=== PATIENT | male | born 1950 | race Hispanic/Latino ===

== ENCOUNTER 2023-03-01 03:29 | Emergency (ER) | payer OTHER ==
[~2023-03-01] VITALS: Ht 182.9 cm; Wt 143.8 kg
[~2023-03-01 03:29] MED LIST: ALBU90AE2 IH; ALLO300T2 PO; ASPI-1005 PO; ASPI-556 PO; ATOR20TA65 PO; FURO40TA5 PO; HYDR-4457 PO; LORA0.5T83 PO; LOSA100T59 PO; SYMB8060 IH; spiriva IH
[2023-03-01 03:51] LABS: APPEARANCE,URINE CLEAR (CLEAR); BILIRUBIN,URINE NEGATIVE (NEGATIVE); COLOR,URINE LIGHT-YELLOW (YELLOW); GLUCOSE, URINE (UA) >=1000 mg/dL (NEGATIVE); KETONES,URINE NEGATIVE (NEGATIVE); LEUKOCYTE ESTERASE ,URINE NEGATIVE Leu/uL (NEGATIVE); NITRATE,URINE NEGATIVE (NEGATIVE); OCCULT BLOOD,URINE SMALL (NEGATIVE); PH,URINE 5.5 (5.0-8.0); PROTEIN,URINE 20 mg/dL (NEGATIVE); UROBILINOGEN,URINE 0.2 mg/dL (0.2-1.0)
[2023-03-01 03:52] LABS: ADD UA MICROSCOPIC YES
[2023-03-01 03:57] LABS: MUCUS,URINE RARE LPF (None Seen); SQUAMOUS EPITHELIAL CELL,UR RARE /HPF (0-2); WBC,URINE 0-1 /HPF (0-1)
[2023-03-01 03:58] LABS: BASOPHILS # (AUTO) 0.04 K/uL (0.00-0.20); BASOPHILS % (AUTO) 0.4 % (0.0-5.0); EOSINOPHILS # (AUTO) 0.04 K/uL (0.00-0.70); EOSINOPHILS % (AUTO) 0.4 % (0.0-8.0); HEMATOCRIT 41.3 % (42-54); IMMATURE GRANULOCYTE ABSOLUTE 0.09 K/uL (0-1); LYMPHOCYTES # (AUTO) 0.6 K/uL (1.0-4.8); LYMPHOCYTES % (AUTO) 6.1 % (21.0-51.0); MEAN CORPUSCULAR HEMOGLOBIN 32.9 pg (27.0-33.0); MEAN CORPUSCULAR HGB CONC 34.1 g/dL (32.0-36.0); MEAN CORPUSCULAR VOLUME 96.3 fL (79-99); MONOCYTES # (AUTO) 0.6 K/uL (0.1-1.0); MONOCYTES % (AUTO) 6.1 % (3.0-13.0); NEUTROPHILS # (AUTO) 9.1 K/uL (1.8-7.7); NEUTROPHILS % (AUTO) 86.1 % (40.0-77.0); PLATELET COUNT (AUTO) 211 K/uL (130-400); RED BLOOD CELL COUNT(AUTO) 4.29 MIL/uL (4.50-6.20); RED CELL DISTRIBUTION WIDTH 13.2 % (11.0-15.5); WHITE BLOOD COUNT (AUTO) 10.5 K/uL (4.8-10.8)
[2023-03-01 04:06] LABS: CREATININE 1.1 mg/dL (0.5-1.5); POTASSIUM 4.4 mmol/L (3.5-5.1)
[2023-03-01 04:13] LABS: ALBUMIN 3.3 g/dL (3.5-5.0); BILIRUBIN,TOTAL 0.9 mg/dL (0.2-1.0); TOTAL PROTEIN, SERUM 7.5 g/dL (6.0-8.3)
[2023-03-01 04:14] LABS: WBC MORPHOLOGY CONSISTENT W/DIFF
[2023-03-01] MEDS ORDERED: ONDANSETRON 4MG INJ ONE (04:43)
[2023-03-01] MEDS ORDERED: CYCLOBENZAPRINE HCL 10 MG TABLET ONE (04:44)
[2023-03-01] MEDS ORDERED: MORPHINE 2 MG SYG ONE (04:44)
[2023-03-01] MEDS ORDERED: CYCLOBENZAPRINE HCL 10 MG TABLET PO ONE (05:00)
[2023-03-01] MEDS ORDERED: MORPHINE 2 MG SYG IVP ONE (05:00)
[2023-03-01] MEDS ORDERED: ONDANSETRON 4MG INJ IVP ONE (05:00)
[2023-03-01] MEDS ORDERED: IBUP-1493 PO (06:14)
[2023-03-01] MEDS ORDERED: GABA300C PO (06:14)
[2023-03-01] MEDS ORDERED: CYCL-309 PO (06:14)
[2023-03-01 06:16] VITALS: BP 132/65; PULSE 78; RESP 16; O2SAT 98
== END 2023-03-01 06:29 | disposition home or self-care (01) ==
LOC: EDH 03:29
DX: M51.16 Intervertebral disc disorders with radiculopathy, lumbar region (principal); M51.36 Other intervertebral disc degeneration, lumbar region; K40.90 Unilateral inguinal hernia, without obstruction or gangrene, not specified as recurrent; R91.1 Solitary pulmonary nodule; I10 Essential (primary) hypertension; E11.9 Type 2 diabetes mellitus without complications; E78.00 Pure hypercholesterolemia, unspecified; Z79.82 Long term (current) use of aspirin; Z79.899 Other long term (current) drug therapy; Z98.890 Other specified postprocedural states
CPT/HCPCS: 99285; 74176; 96374; 96375; 80053; 85025; 81001; 36415; J2270; J2405

== ENCOUNTER 2024-05-09 08:00 | Observation (INO) | payer OTHER ==
[2024-05-03 10:58] LABS: BASOPHILS # (AUTO) 0.04 K/uL (0.00-0.20); BASOPHILS % (AUTO) 0.5 % (0.0-5.0); EOSINOPHILS # (AUTO) 0.12 K/uL (0.00-0.70); EOSINOPHILS % (AUTO) 1.6 % (0.0-8.0); HEMATOCRIT 42.4 % (42-54); IMMATURE GRANULOCYTE ABSOLUTE 0.07 K/uL (0-1); LYMPHOCYTES # (AUTO) 0.9 K/uL (1.0-4.8); MEAN CORPUSCULAR HEMOGLOBIN 33.6 pg (27.0-33.0); MEAN CORPUSCULAR VOLUME 99.1 fL (79-99); MONOCYTES # (AUTO) 0.7 K/uL (0.1-1.0); MONOCYTES % (AUTO) 8.6 % (3.0-13.0); NEUTROPHILS # (AUTO) 5.8 K/uL (1.8-7.7); NEUTROPHILS % (AUTO) 76.4 % (40.0-77.0); PLATELET COUNT (AUTO) 172 K/uL (130-400); RED BLOOD CELL COUNT(AUTO) 4.28 MIL/uL (4.50-6.20); RED CELL DISTRIBUTION WIDTH 13.2 % (11.0-15.5); WHITE BLOOD COUNT (AUTO) 7.6 K/uL (4.8-10.8)
[2024-05-03 11:04] VITALS: BP 171/77; PULSE 65; RESP 18; TEMP 98.1
[2024-05-03 11:09] LABS: APPEARANCE,URINE CLEAR (CLEAR); BILIRUBIN,URINE NEGATIVE (NEGATIVE); COLOR,URINE COLORLESS (YELLOW); GLUCOSE, URINE (UA) NEGATIVE (NEGATIVE); KETONES,URINE NEGATIVE (NEGATIVE); LEUKOCYTE ESTERASE ,URINE NEGATIVE Leu/uL (NEGATIVE); NITRATE,URINE NEGATIVE (NEGATIVE); OCCULT BLOOD,URINE NEGATIVE (NEGATIVE); PROTEIN,URINE NEGATIVE (NEGATIVE); UROBILINOGEN,URINE 0.2 mg/dL (0.2-1.0)
[2024-05-03 11:10] LABS: ADD UA MICROSCOPIC NO
--- NOTE | 2024-05-03 11:13 | EKG ---
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
[~2024-05-09] VITALS: Ht 182.9 cm; Wt 143.3 kg
[2024-05-09] VITALS (23 sets, daily range): BP systolic 92–155; BP diastolic 43–76; PULSE 48–62; RESP 15–20; TEMP 97.4–98.5; O2SAT 93
[~2024-05-09 08:00] MED LIST changes: -ALBU90AE2 IH; +ALBU90AE3 IH; -ASPI-1005 PO; +CETI10TA57 PO; +EMPA25TA PO; +FLUT16H NASAL; -HYDR-4457 PO; +MULT-1367 PO; +NAPR-1506 PO; -SYMB8060 IH; +TIOT4MIS8 IH; -spiriva IH
[2024-05-09] MEDS ORDERED: ondanSETRON 4MG INJ ONE (08:42)
[2024-05-09] MEDS ORDERED: phenylEPHRINE HCL 10 MG/ML 1ML VIAL IV ONE (08:42)
[2024-05-09] MEDS ORDERED: proPOFol 10 MG/ML 20ML VIAL IV ONE ×2 (08:42→11:35)
[2024-05-09] MEDS ORDERED: rocuRONium bROMide 10MG/1ML 5ML VL ONE ×2 (08:43→09:42)
[2024-05-09] MEDS ORDERED: FENTanyl CITRate PF 50 MCG/1 ML 2ML VIAL ONE ×2 (08:43→13:27)
[2024-05-09] MEDS ORDERED: MIDAZOLAM HCL 1 MG/ML 2ML VIAL ONE (08:43)
[2024-05-09] MEDS ORDERED: dexaMETHasone SOD PHOSPHATE 10MG/ML 1ML VIAL ONE (08:48)
[2024-05-09] MEDS ORDERED: ROPivacaine 0.5% 5MG/ML 30ML ONE (08:48)
[2024-05-09] MEDS: CLINDAMYCIN IVPB 900MG/50ML 50 ML IV ONE (09:38)
[2024-05-09] MEDS: 0.9%NACL 1000ML 1,000 ML IV ONE (09:38)
[2024-05-09] MEDS: ceFAZolin SODIUM 1 GM VIAL ONE (10:00)
[2024-05-09] MEDS: TRANEXAMIC ACID 1000MG/10ML ONE ×2 (10:10→14:06)
[2024-05-09] MEDS ORDERED: ceFAZolin SODIUM 1 GM VIAL ONE (10:32)
[2024-05-09] MEDS ORDERED: GLYCOPYRROLATE 0.2 MG/ML 5 ML VIAL ONE (13:27)
[2024-05-09] MEDS ORDERED: NEOSTIGMINE METHYLSULFATE 1MG/ML IV ONE (13:27)
[2024-05-09] MEDS ORDERED: CALCIUM CARB 500MG PO PRN (13:30)
[2024-05-09] MEDS ORDERED: PoTASSium chloRIDE 20MEQ/100ML 100 ML IV PRN (13:30)
[2024-05-09] MEDS ORDERED: PoTASSium chloRIDE 20MEQ ER 20 MEQ ERTAB PO PRN (13:30)
[2024-05-09] MEDS ORDERED: PoTASSium chl 10% ELIXIR 20MEQ 20 MEQ/15 ML UDCUP PO PRN (13:30)
[2024-05-09] MEDS ORDERED: ondanSETRON 4MG INJ IVP PRN (13:30)
[2024-05-09] MEDS ORDERED: HYDROcodone/APAP 5/325 1 TAB TABLET PO PRN (13:30)
[2024-05-09] MEDS ORDERED: DiphenhydrAMINE HCL 50 MG/ML VIAL IVP PRN (13:30)
[2024-05-09] MEDS ORDERED: FE FUMARATE/FA/MV, MIN COMB#15 1 TAB PO PRN (13:30)
[2024-05-09] MEDS ORDERED: ketOROlac 15MG/ML VIAL (15MG/ML) IV PRN (13:30)
--- NOTE | 2024-05-09 14:41 | HMCIMG ---
SHOULDER COMP 2+VWS LT REASON: ORIF LEFT SHOULDER, TSA, VS REVERSE TECHNIQUE: 10 surgical spot views were obtained. These document to left shoulder joint prosthesis placement. Fluoroscopy time was 27 seconds. IMPRESSION: 1. Documentation of left shoulder joint prosthesis placement.
--- NOTE | 2024-05-09 15:44 | OP ---
Operative Note: DATE OF PROCEDURE: 05/09/24 SURGEON: REVA OLIVER MD COLLAR FOLDER OPERATOR: [ANA TREVIZO CFA] ANESTHESIA: [GENERAL ANESTHESIA PLUS REGIONAL BLOCK] ANESTHESIOLOGIST/ALLERGY PHYSICIAN: [CLARITZA PARTIDA CRNA] PREOPERATIVE DIAGNOSIS: [LEFT SHOULDER OSTEOARTHRITIS] POSTOPERATIVE DIAGNOSIS: [LEFT SHOULDER OSTEOARTHRITIS] IMPLANTS: [BIOMET SHOULDER. HUMERAL STEM SIZE 16. HUMERAL HEAD SIZE 50 X 21 MM. GLENOID SIZE 5, FOUR PEG WITH TRABECULAR METAL POST] PROCEDURE: [LEFT TOTAL SHOULDER ARTHROPLASTY] ESTIMATED BLOOD LOSS: [500 ML] INDICATIONS: [THE PATIENT IS A 74-YEAR-OLD MALE WITH A LONG HISTORY OF PAIN TO THE LEFT SHOULDER. HE HAD RECEIVED MULTIPLE TREATMENTS NO LONGER BEING SUCCESSFUL. THE PATIENT HAS SIGNIFICANT RESTRICTION OF RANGE OF MOTION IN INTERNAL AND EXTERNAL ROTATION WELL ABDUCTION AND FORWARD FLEXION. THE PATIENT IS BROUGHT TO THE OPERATING ROOM FOR A TOTAL SHOULDER ARTHROPLASTY, PRIMARY VERSUS REVERSE PENDING ON THE STATUS OF THE ROTATOR CUFF WHICH BY MRI SEEMS TO BE STILL INTACT. PROCEDURE UNDERSTOOD, RISKS, BENEFITS AND POSSIBLE COMPLICATIONS AND THE PATIENT AGREED TO SIGN THE CONSENT FORM] DESCRIPTION OF PROCEDURE: [AFTER ADEQUATE GENERAL ANESTHESIA WAS ACHIEVED AND REGIONAL BLOCK OBTAINED THE PATIENT WAS PLACED IN THE BEACH CHAIR POSITION AND THE LEFT UPPER EXTREMITY WAS PREPPED AND DRAPED IN THE USUAL MANNER. AFTER IDENTIFICATION OF THE BONY LANDMARKS AND INCISION WAS CARRIED DOWN IN THE ANTERIOR ASPECT OF THE SHOULDER FOLLOWING THE DELTOPECTORAL LINE THROUGH THE SKIN FOLLOWED BY DISSECTION OF THE SUBCUTANEOUS TISSUE. AFTER IDENTIFICATION OF THE CEPHALIC VEIN THE DELTOPECTORAL SPACE WAS DEVELOPED AND WE PROCEEDED TO DISSECT THE 2 MUSCLES AND RETRACT THEM TO ENTER INTO THE SPACE IDENTIFYING THE CLAVIPECTORAL FASCIA WHICH WAS INCISED JUST LATERAL TO THE SHORT HEAD OF THE BICEPS AND DIRECTED SUPERIORLY AND INFERIORLY. WITH THE ARM IN A SLIGHT ABDUCTION AND WITH A TOLBERT RETRACTOR ELEVATING THE DELTOID MUSCLE WERE ABLE TO IDENTIFY THE SUBSCAPULARIS TENDON AND THE INSERTION OF THE PECTORALIS MUSCLE AT THE HUMERUS WELL THE CIRCUMFLEX VESSELS IN THE INFERIOR BORDER OF THE SUBSCAPULARIS. THE VESSELS WERE LIGATED WITH TWO #1 VICRYL STITCHES AT THE MOST LATERAL ASPECT OF THE SUBSCAPULARIS. THE 1 CM SUPERIOR PORTION OF THE PECTORALIS TENDON INSERTION WAS CUT LEAVING A SMALL CUFF OF TENDON. WE THEN PROCEEDED TO OPEN THE LONG HEAD OF THE BICEPS TENDON SHEATH FOLLOWING THE TENDON UNTIL ITS PENETRATION INTO THE SHOULDER JOINT PULLING THEN THE TENDON AND APPLYING TO #2 ETHIBOND SUTURES THROUGH AND THEN TRANSECTED IT FOR LATER TENODESIS. AT THIS POINT WE PROCEEDED THEN TO PEEL OF THE SUBSCAPULARIS TENDON OF THE LESSER TUBEROSITY WHILE AT THE SAME TIME EXTERNALLY ROTATING THE ARM EXPOSING THE HUMERAL HEAD AND PROCEEDED WITH THE DISSECTION ALL THE WAY TO THE POSTERIOR ASPECT OF THE HUMERAL HEAD USING THE BOVIE CAUTERY. A TAG SUTURE WITH #1 ETHIBOND STITCH WAS APPLIED TO THE SUPEROLATERAL CORNER OF THE SUBSCAPULARIS PREVIOUS TO THE DETACHMENT. AT THIS POINT THE HUMERAL HEAD WAS PRESENTED THROUGH THE WOUND BY EXTERNALLY ROTATING THE ARM FURTHER AND EXTENDING IT. WE THEN PROCEEDED TO SPLIT THE SUBSCAPULARIS FROM THE SUPRASPINATUS TENDON PROCEEDED THEN TO DISLOCATE THE SHOULDER EXPOSED IN THE HUMERAL HEAD WHICH WAS SEVERELY AFFECTED WITH ARTHRITIS, FLATTENED IT AND WITH LARGE OSTEOPHYTES IN THE PERIPHERY. THE LATTER WERE REMOVED AND THEN WE PROCEEDED TO MAKE A STARTING HOLE IN THE TOP OF THE HUMERAL HEAD ENTERING THE CANAL AND THEN WE PROCEEDED TO REAM OUT TO THE APPROPRIATE SIZE 15 LEAVING THE LAST REAMER IN PLACE AND THEN APPLYING THE HUMERAL HEAD CUTTING GUIDE WITH 30 DEGREE RETROVERSION AND AFTER THE GUIDE WAS SECURED WITH PINS WE PROCEEDED TO REMOVE THE INTRAMEDULLARY REAMER AND WITH THE USE OF THE OSCILLATING SAW WE PROCEEDED TO REMOVE THE HUMERAL HEAD. WE THEN PROCEEDED TO USE THE HUMERAL BROACHES FROM THE SMALLEST TO THE CHOSEN DIAMETER TO OBTAIN AN ADEQUATE FIT LEAVING THE LAST BROACH IN PLACE. THEN RETRACTORS WERE APPLIED ANTERIORLY AND POSTEROINFERIORLY TO THE GLENOID KEEPING THE ARM EXTERNALLY ROTATED AND AFTER THE GLENOID WAS EXPOSED WE PROCEEDED TO REMOVE THE REMNANTS OF THE LABRUM AND THE BICEPS AND WE FOUND THE CENTER OF THE GLENOID WITH THE GUIDE AND MADE A DRILL HOLE WITH A GUIDEPIN. THEN WE PROCEEDED TO APPLY THE REAMER AND CLEAN THE GLENOID AND MADE THE SURFACE EVEN AND EXPOSE CORTICAL CANCELLUS BONE. THIS WAS FOLLOWED BY APPLICATION OF THE GLENOID GUIDE AND FIRST WE PROCEEDED TO MADE THE CENTRAL HOLE FOR THE POST FOLLOWED BY THREE PERIPHERAL SMALLER HOLES. THE TRIAL GLENOID WAS INSERTED AND NOTED TO FIT ADEQUATELY AND THIS WAS LEFT IN PLACE, RETRACTORS WERE REMOVED WE PROCEEDED TO PRESENT THE PROXIMAL HUMERUS AND THE CHOSEN HUMERAL HEAD WAS INSERTED TO THE BROACH IN THE HUMERUS AND THE SHOULDER WAS REDUCED OBTAINING A STABLE AND CONGRUENT SHOULDER. X-RAYS REVEALED AN ADEQUATE SIZED FOR THE HUMERAL STEM, ADEQUATE POSITION OF THE HUMERAL HEAD AND CONGRUENCY. WE THEN DISLOCATED THE SHOULDER AND THE HUMERAL HEAD WAS REMOVED WELL THE GLENOID TRIAL AND WE IRRIGATED THE JOINT WITH ANTIBIOTIC SOLUTION AFTER RETRACTORS WERE APPLIED TO VISUALIZE THE GLENOID AND AFTER CEMENT WAS MIXED ON THE BACK TABLE AND AND WE DRIED THE SURFACE OF THE GLENOID AND THE PEG HOLES WE PROCEEDED TO APPLY CEMENT TO THE PERIPHERAL HOLES AND THE FINAL GLENOID COMPONENT WAS INSERTED AND HELD IN POSITION UNTIL THE CEMENT DRIED. A DILUTED BETADINE SOLUTION WAS USED DURING THIS TIME AND ONCE THE CEMENT DRIED THE RETRACTORS WERE REMOVED AND WE PRESENTED THE PROXIMAL HU MERUS AND THE HUMERAL STEM WAS REMOVED THE HUMERAL STEM CANAL WAS THEN IRRIGATED WITH ANTIBIOTIC SOLUTION WITH JET LAVAGE AND THE FINAL COMPONENT WAS THEN INSERTED PREVIOUS APPLICATION OF #2 ETHIBOND LOOPED SUTURES IN THE ANTERIOR RIM FOR FUTURE CLOSURE OF THE SUBSCAPULARIS, AND PREVIOUS TENODESIS OF THE BICEPS AT THE BICIPITAL GROOVE ALSO WITH 2. ETHIBOND SUTURES ONCE THE STEM WAS IN POSITION WE PROCEEDED THEN TO APPLY THE HUMERAL HEAD AND TAP IT AGAINST THE STEM AND THE SHOULDER WAS REDUCED. X-RAYS TAKEN REVEAL AN ADEQUATE POSITION OF THE COMPONENTS AND AFTER FURTHER IRRIGATION OF THE JOINT WITH BETADINE SOLUTION FIRST AND THEN WITH ANTIBIOTIC IRRIGATION WITH JET LAVAGE WE PROCEEDED THEN TO REAPPROXIMATE THE SUBSCAPULARIS TENDON WITH THE LOOP SUTURES WITH 2-0 ETHIBOND UNDERNEATH THERE WAS CLOSED WITH THREE #1 ETHIBOND SUTURES. A DRAIN WAS PLACED THROUGH A SEPARATE STAB INCISION AND THE DELTOPECTORAL INTERVAL WAS THEN CLOSED WITH #1 VICRYL INTERRUPTED STITCHES FOLLOWED BY CLOSURE OF THE SUBCUTANEOUS TISS UE WITH #2-0 MONOCRYL INVERTED STITCHES AND THE SKIN WAS CLOSED WITH 3-0 MONOCRYL SUBCUTICULARLY. DERMABOND WAS APPLIED TO COVER THE INCISION AND A SOFT DRESSING WAS THEN APPLIED. A SEPARATE SOFT DRESSING WAS APPLIED AROUND THE DRAIN WHICH WAS THEN CONNECTED TO A RESERVOIR. THE DRAPES WERE THEN REMOVED, THE PATIENT WAS PLACED IN AN ARM SLING AND THEN PLACED IN THE SUPINE POSITION AND TRANSFERRED TO A HOSPITAL BED AND TAKEN TO RECOVERY ROOM FOR FOLLOW-UP BY ANESTHESIA. THERE WERE NO COMPLICATIONS DURING THE PROCEDURE.] REVA OLIVER MD May 09, 2024 15:44
[2024-05-09] MEDS: 0.9%NACL 1000ML 1,000 ML IV SCH (16:07)
[2024-05-09] MEDS: INSULIN humuLIN R 100 UNIT/ML 3ML SQ SCH (16:30)
[2024-05-09] MEDS: HYDROcodone/APAP 5/325 1 TAB TABLET PO PRN (16:48)
[2024-05-09] MEDS: ceFAZolin SODIUM 2 GM VIAL IVP SCH (17:52)
[2024-05-09] MEDS: doCUSate SODIUM 100 MG CAP PO SCH (20:31)
[2024-05-09] MEDS: CeleCOXib 200 MG CAP PO SCH (20:31)
[2024-05-09] MEDS: FAMOTIDINE 20MG TAB PO SCH (20:31)
[2024-05-09] MEDS: TEMAZepam 15 MG CAPSULE PO PRN (22:29)
[2024-05-10] VITALS (8 sets, daily range): BP systolic 130–180; BP diastolic 62–81; PULSE 53–66; RESP 18–20; TEMP 97.7–98.3; O2SAT 95–98
[2024-05-10 04:41] LABS: HEMATOCRIT 38.2 % (42-54); MEAN CORPUSCULAR HEMOGLOBIN 33.6 pg (27.0-33.0); MEAN CORPUSCULAR HGB CONC 32.7 g/dL (32.0-36.0); MEAN CORPUSCULAR VOLUME 102.7 fL (79-99); RED BLOOD CELL COUNT(AUTO) 3.72 MIL/uL (4.50-6.20); RED CELL DISTRIBUTION WIDTH 13.1 % (11.0-15.5); WHITE BLOOD COUNT (AUTO) 13.3 K/uL (4.8-10.8)
[2024-05-10 05:02] LABS: POTASSIUM 4.6 mmol/L (3.5-5.1)
[2024-05-10] MEDS: tamSULOsin HCL 0.4 MG CAP.ER.24H PO SCH (09:19)
[2024-05-10] MEDS: polyETHYLene GLYCol 3350 17 GM POWD.PACK PO SCH (09:19)
[2024-05-10] MEDS: ENOXAPARIN SODIUM 40 MG/0.4 ML SYRINGE SQ SCH (09:20)
--- NOTE | 2024-05-10 13:10 | PN ---
POSTOP DAY 1.. STATUS POST LEFT SHOULDER PRIMARY ARTHROPLASTY. VITAL SIGNS STABLE, PATIENT HAS BEEN AFEBRILE. LABORATORY HAS BEEN REVIEWED. PATIENT IS AWAKE, ALERT AND ORIENTED AND SITTING IN THE BED WEARING A SLING. HE WAS RESPIRATORY EFFORT IS NORMAL. HE SEEMS TO BE IN NO DISTRESS. I HAVE INFORMED THE PATIENT OF THE FINDINGS OF THE SURGERY. ON EXAMINATION HIS DRESSING IS INTACT. HIS DISTAL NEUROVASCULAR EXAM IS NORMAL. ASSESSMENT: STATUS POST LEFT TOTAL SHOULDER ARTHROPLASTY. PLAN: THE PATIENT WILL BE STARTING PHYSICAL THERAPY AND ARRANGEMENTS WILL BE MADE WITH CASE MANAGEMENT AND [facility]. Vitals/Labs Vital Signs Date Time Temp Pulse Resp B/P (MAP) Pulse Ox O2 Delivery O2 Flow Rate FiO2 05/10/24 08:03 98.2 54 19 145/74 93 Room Air 21 05/09/24 14:43 2.0 Laboratory Tests 05/10/24 04:09 Medications Current Medications Clindamycin HCl/ Dextrose 50 ml @ As Directed STK-MED ONCE IV; Start 05/09/24 at 08:39; Stop 05/09/24 at 08:40; Status DC Sodium Chloride 1,000 ml @ As Directed STK-MED ONCE IV Last administered on 05/09/24at 09:38; Start 05/09/24 at 08:39; Stop 05/09/24 at 08:40; Status DC Ondansetron HCl 4 mg STK-MED ONCE .ROUTE; Start 05/09/24 at 08:42; Stop 05/09/24 at 08:42; Status DC Propofol 200 mg STK-MED ONCE IV; Start 05/09/24 at 08:42; Stop 05/09/24 at 08:42; Status DC Phenylephrine HCl 10 mg STK-MED ONCE IV; Start 05/09/24 at 08:42; Stop 05/09/24 at 08:42; Status DC Midazolam HCl 2 mg STK-MED ONCE .ROUTE; Start 05/09/24 at 08:43; Stop 05/09/24 at 08:43; Status DC Rocuronium [place] 50 mg STK-MED ONCE .ROUTE; Start 05/09/24 at 08:43; Stop 05/09/24 at 08:44; Status DC Fentanyl Citrate 100 mcg STK-MED ONCE .ROUTE; Start 05/09/24 at 08:43; Stop 05/09/24 at 08:44; Status DC Ropivacaine 150 mg STK-MED ONCE .ROUTE; Start 05/09/24 at 08:48; Stop 05/09/24 at 08:48; Status DC Dexamethasone Sodium Phosphate 10 mg STK-MED ONCE .ROUTE; Start 05/09/24 at 08:48; Stop 05/09/24 at 08:48; Status DC Rocuronium [place] 50 mg STK-MED ONCE .ROUTE; Start 05/09/24 at 09:42; Stop 05/09/24 at 09:42; Status DC Tranexamic Acid 1,000 mg STK-MED ONCE .ROUTE Last administered on 05/09/24at 10:10; Start 05/09/24 at 10:06; Stop 05/09/24 at 10:06; Status DC Cefazolin Sodium 1 gm STK-MED ONCE .ROUTE Last administered on 05/09/24at 10:00; Start 05/09/24 at 10:06; Stop 05/09/24 at 10:06; Status DC Cefazolin Sodium 1 gm STK-MED ONCE .ROUTE; Start 05/09/24 at 10:32; Stop 05/09/24 at 10:32; Status DC Propofol 200 mg STK-MED ONCE IV; Start 05/09/24 at 11:35; Stop 05/09/24 at 11:35; Status DC Sodium Chloride 1,000 ml @ 100 mls/hr Q10H IV Last administered on 05/09/24at 16:07; Start 05/09/24 at 13:30; Stop 05/10/24 at 13:29 Polyethylene Glycol 17 gm DAILY PO Last administered on 05/10/24at 09:19; Start 05/10/24 at 09:00; Stop 06/09/24 at 08:59 Bisacodyl 10 mg DAILY PRN RC; Start 05/12/24 at 13:30; Stop 06/11/24 at 13:29 Ketorolac Tromethamine 15 mg Q6H PRN IV; Start 05/09/24 at 13:30; Stop 05/14/24 at 13:29 Famotidine 20 mg BID PO Last administered on 05/10/24at 09:19; Start 05/09/24 at 21:00; Stop 06/08/24 at 20:59 Tamsulosin HCl 0.4 mg DAILY PO Last administered on 05/10/24at 09:19; Start 05/10/24 at 09:00; Stop 06/09/24 at 08:59 Multivitamins/Iron 1 tab DAILY PRN PO; Start 05/09/24 at 13:30; Stop 06/08/24 at 13:29 Temazepam 15 mg HS PRN PO Last administered on 05/09/24at 22:29; Start 05/09/24 at 13:30; Stop 06/08/24 at 13:29 Ondansetron HCl 4 mg Q6H PRN IVP; Start 05/09/24 at 13:30; Stop 06/08/24 at 13:29 Calcium Carbonate 500 mg Q12H PRN PO; Start 05/09/24 at 13:30; Stop 06/08/24 at 13:29 Diphenhydramine HCl 25 mg Q6H PRN IVP; Start 05/09/24 at 13:30; Stop 06/08/24 at 13:29 Insulin Human Regular INSULIN SLIDING SCAL... ACHS SQ; Start 05/09/24 at 16:30; Stop 06/08/24 at 16:29 Cefazolin Sodium 2 gm Q8H IVP Last administered on 05/10/24at 02:10; Start 05/09/24 at 18:30; Stop 05/10/24 at 02:31; Status DC Docusate Sodium 100 mg BID PO Last administered on 05/10/24at 09:19; Start 05/09/24 at 21:00; Stop 06/08/24 at 20:59 Potassium Chloride 100 ml @ 100 mls/hr AD PRN IV; Start 05/09/24 at 13:30; Stop 06/08/24 at 13:29 Potassium Chloride 20 meq AD PRN PO; Start 05/09/24 at 13:30; Stop 06/08/24 at 13:29 Potassium Chloride 20 meq AD PRN PO; Start 05/09/24 at 13:30; Stop 06/08/24 at 13:29 Celecoxib 200 mg BID PO Last administered on 05/10/24at 09:19; Start 05/09/24 at 21:00; Stop 06/08/24 at 20:59 Acetaminophen/ Hydrocodone Bitart Q4H PRN PO; Start 05/09/24 at 13:30; Stop 05/09/24 at 13:38; Status DC Glycopyrrolate 1 mg STK-MED ONCE .ROUTE; Start 05/09/24 at 13:27; Stop 05/09/24 at 13:28; Status DC Neostigmine Methylsulfate 10 mg STK-MED ONCE IV; Start 05/09/24 at 13:27; Stop 05/09/24 at 13:28; Status DC Fentanyl Citrate 100 mcg STK-MED ONCE .ROUTE; Start 05/09/24 at 13:27; Stop 05/09/24 at 13:28; Status DC Acetaminophen/ Hydrocodone Bitart 1 tab Q4H PRN PO; Start 05/09/24 at 14:00; Stop 05/14/24 at 13:59 Acetaminophen/ Hydrocodone Bitart 2 tab Q4H PRN PO Last administered on 05/10/24at 09:19; Start 05/09/24 at 14:00; Stop 05/14/24 at 13:59 Tranexamic Acid 1,000 mg STK-MED ONCE .ROUTE Last administered on 05/09/24at 14:06; Start 05/09/24 at 13:45; Stop 05/09/24 at 13:48; Status DC Enoxaparin Sodium 40 mg DAILY SQ Last administered on 05/10/24at 09:20; Start 05/10/24 at 09:00; Stop 06/09/24 at 08:59 REVA OLIVER MD May 10, 2024 13:10
[2024-05-10] MEDS ORDERED: NAPROXEN 500 MG PO PRN (16:00)
[2024-05-10] MEDS ORDERED: LORazepam 0.5 MG TABLET PO PRN (16:00)
[2024-05-10] MEDS ORDERED: ALBUTEROL SULFATE 90 MCG IH PRN (16:00)
[2024-05-10] MEDS: LoSARTan 100 MG TABLET PO SCH (20:10)
[2024-05-10] MEDS: ASPIRIN 81 MG EC TAB PO SCH (20:10)
[2024-05-10] MEDS: ceTIRIzine HCL 5 MG TABLET PO SCH (20:10)
[2024-05-10] MEDS: atorVAStatin 20 MG TABLET PO SCH (20:11)
[2024-05-11] VITALS: BP 150/68; PULSE 58; RESP 18; TEMP 97.7
[2024-05-11 04:00] VITALS: BP 157/70; PULSE 54; RESP 18; TEMP 97.7
[2024-05-11 08:00] VITALS: O2SAT 98
[2024-05-11] MEDS: OLODATEROL HCL IH SCH (09:00)
[2024-05-11] MEDS: EMPAGLIFLOZIN 25MG TABLET PO SCH (09:00)
[2024-05-11] MEDS: TIOTROPIUM BR IH SCH (09:00)
[2024-05-11] MEDS: furoSEMIDE 40 MG TABLET PO SCH (09:47)
[2024-05-11] MEDS: alloPURInol 300 MG TABLET PO SCH (09:47)
[2024-05-11 09:48] VITALS: BP 150/96; PULSE 50; RESP 18; TEMP 98.1
[2024-05-11] MEDS: HYDROcodone/APAP 5/325 1 TAB TABLET PO PRN (09:49)
[2024-05-11] MEDS: fluTICasone proPIONate 50MCG/SPRAY 16 GM BOTTLE EN SCH (09:51)
[2024-05-11 12:34] VITALS: BP 127/60; PULSE 54; RESP 17; TEMP 97.9
[2024-05-11] MEDS ORDERED: HYDR-4060 PO (13:02)
--- NOTE | 2024-05-11 13:07 | DS ---
DISCHARGE SUMMARY [ [Date of admission: 05/09/2024 Date of discharge: 05/11/2024 Final diagnosis: Left Shoulder osteoarthritis. Surgical procedures: Left primary total shoulder arthroplasty on 05/09/2024 Summary of History and Physical: The patient is a 74 year-old male with history of severe arthrosis to the shoulder secondary to that has been present for several years and has been treated conservatively with no longer adequate response to treatment. The patient is being admitted for a left shoulder arthroplasty. Previous medical history: Hypertension, hyperlipidemia, measles, Chronic obstructive pulmonary disease, gout, osteoarthritis, obesity. Previous surgical history: Right knee arthroscopy, Yuliet's gangrene, fistulectomy, right total knee arthroplasty, left total knee arthroplasty. Family history: Hyperlipidemia, stroke, congestive heart failure, diabetes mellitus. Social history: Negative for use of tobacco or alcohol. Allergies: Reports allergy to penicillin. Review of system: Negative on admission Hospital course: The patient was admitted and taken to the operating room for a primary left shoulder arthroplasty, procedure that went uneventful. Postoperatively the patient remained hemodynamically stable and afebrile. The patient received antibiotic and anticoagulation prophylaxis as per protocol. The patient was evaluated by physical therapy and started rehabilitation treatment with gentle range of motion exercises to the shoulder. The patient was also evaluated by case management and arrangements were made for discharge. The patient tolerated diet well. On postop day #2 all the arrangements were completed. The drain was removed, the dressing was changed and the wound was noted to be stable and the patient was dismissed. Condition on discharge: Good Disposition: The patient will be dismissed home with home health. Follow-up will be done at the office in 3 weeks. The patient is to continue with therapy and rehabilitation at home. Continue taking pain medication as instructed as well as home medications as instructed and continue with pre admission diet.] REVA OLIVER MD ] REVA OLIVER MD May 11, 2024 13:07
[2024-05-12] MEDS ORDERED: BisaCODYL 10 MG SUPP.RECT RC PRN (13:30)
== END 2024-05-11 15:15 | disposition home or self-care (01) ==
LOC: DAH 08:00 → DAHIP 08:01 → 4DH 14:43
PROVIDERS: ADMIT Orthopaedic Surgery; ATTEND Orthopaedic Surgery
DX: M19.012 Primary osteoarthritis, left shoulder (principal); G89.18 Other acute postprocedural pain; M25.512 Pain in left shoulder; E78.5 Hyperlipidemia, unspecified; E11.9 Type 2 diabetes mellitus without complications; I10 Essential (primary) hypertension; J44.9 Chronic obstructive pulmonary disease, unspecified; E66.9 Obesity, unspecified; Z96.653 Presence of artificial knee joint, bilateral; Z79.899 Other long term (current) drug therapy; Z98.890 Other specified postprocedural states; Z68.41 Body mass index [BMI] 40.0-44.9, adult; Z88.0 Allergy status to penicillin
CPT/HCPCS: 85025; 87086; 81003; 36415 ×2; 93005; 87641; 64415; 23472; 96374; 82948 ×9; 88311; 88305; 73030; 97161; 97530 ×7; 96376; 96372 ×2; 80048; 85027; 97116 ×4; C1776 ×4; G0378 ×46; A4663; J7030 ×2; A4344; J3010 ×2; J0690 ×4; J3490 ×6; J1100; J2250; J2704; J2405; J2710; J2795; J2371; A4649 ×3; A4930; C1713; A4215 ×2; A4223 ×2; A4222; A4221; A4216; A4600; J1650 ×2

== ENCOUNTER 2024-09-11 14:00 | Inpatient (IN) | payer OTHER ==
[~2024-09-11] VITALS: Ht 182.9 cm; Wt 139.2 kg
[2024-09-11 11:20] LABS: BASOPHILS # (AUTO) 0.04 K/uL (0.00-0.20); BASOPHILS % (AUTO) 0.5 % (0.0-5.0); EOSINOPHILS % (AUTO) 1.2 % (0.0-8.0); HEMATOCRIT 41.9 % (42-54); IMMATURE GRANULOCYTE ABSOLUTE 0.06 K/uL (0-1); LYMPHOCYTES % (AUTO) 11.9 % (21.0-51.0); MEAN CORPUSCULAR HEMOGLOBIN 31.9 pg (27.0-33.0); MEAN CORPUSCULAR HGB CONC 32.7 g/dL (32.0-36.0); MEAN CORPUSCULAR VOLUME 97.4 fL (79-99); MONOCYTES # (AUTO) 0.6 K/uL (0.1-1.0); MONOCYTES % (AUTO) 7.1 % (3.0-13.0); NEUTROPHILS # (AUTO) 6.5 K/uL (1.8-7.7); NEUTROPHILS % (AUTO) 78.6 % (40.0-77.0); PLATELET COUNT (AUTO) 179 K/uL (130-400); RED CELL DISTRIBUTION WIDTH 14.9 % (11.0-15.5); WHITE BLOOD COUNT (AUTO) 8.3 K/uL (4.8-10.8)
[2024-09-11 11:26] LABS: CREATININE 0.9 mg/dL (0.5-1.3); POTASSIUM 3.9 mmol/L (3.5-5.1)
[2024-09-11 12:19] VITALS: BP 118/44; PULSE 52; RESP 16; TEMP 97.9
[~2024-09-11 14:00] MED LIST changes: +coq10 PO
[2024-09-12] VITALS (24 sets, daily range): BP systolic 107–153; BP diastolic 38–77; PULSE 61–84; RESP 14–19; TEMP 97.4–98.1; O2SAT 96
[2024-09-12] MEDS ORDERED: ondanSETRON 4MG INJ ONE ×2 (07:14→08:00)
[2024-09-12] MEDS ORDERED: LIDOCAINE PF 100MG/5ML (2%) SYRINGE 5ML ONE (07:14)
[2024-09-12] MEDS ORDERED: SUCCINYLCHOLINE CHLORIDE 20 MG/ML 10 ML VIAL ONE (07:15)
[2024-09-12] MEDS ORDERED: NEOSTIGMINE METHYLSULFATE 1MG/ML IV ONE (07:15)
[2024-09-12] MEDS ORDERED: proPOFol 10 MG/ML 20ML VIAL IV ONE ×2 (07:15→07:36)
[2024-09-12] MEDS ORDERED: dexaMETHasone SOD PHOSPHATE 10MG/ML 1ML VIAL ONE (07:15)
[2024-09-12] MEDS ORDERED: GLYCOPYRROLATE 0.2 MG/ML 5 ML VIAL ONE (07:15)
[2024-09-12] MEDS ORDERED: MIDAZOLAM HCL 1 MG/ML 2ML VIAL ONE (07:16)
[2024-09-12] MEDS ORDERED: rocuRONium bROMide 10MG/1ML 5ML VL ONE ×2 (07:16→08:28)
[2024-09-12] MEDS ORDERED: FENTanyl CITRate PF 50 MCG/1 ML 2ML VIAL ONE (07:16)
[2024-09-12] MEDS: 0.9%NACL 1000ML 1,000 ML IV ONE (07:20)
[2024-09-12] MEDS: ceFAZolin SODIUM 2 GM VIAL ONE (08:00)
[2024-09-12] MEDS: ceFAZolin SODIUM 1 GM VIAL ONE ×2 (08:00→08:52)
[2024-09-12] MEDS ORDERED: ePHEDrine SULFate 50 MG/ML AMPULE ONE (08:04)
[2024-09-12] MEDS ORDERED: ROPivacaine 0.5% 5MG/ML 30ML ONE (08:35)
[2024-09-12] MEDS ORDERED: phenylEPHRINE HCL 10 MG/ML 1ML VIAL IV ONE (09:35)
[2024-09-12] MEDS ORDERED: SUGAMMADEX SODIUM 200 MG/2 ML VIAL IV ONE (09:35)
--- NOTE | 2024-09-12 11:01 | OP ---
Operative Note: DATE OF PROCEDURE: 09/12/24 SURGEON: REVA OLIVER MD COUTURE ALTERATIONS DRESSMAKER: [Emil Oden CFA] ANESTHESIA: [General anesthesia plus regional block] ANESTHESIOLOGIST/GAME MANAGER: [Goran Adhikari CRNA] PREOPERATIVE DIAGNOSIS: [Postoperative anterior shoulder dislocation] POSTOPERATIVE DIAGNOSIS: [Same] IMPLANTS: [Varghese/Biomet comprehensive shoulder. Humeral insert standard thickness plus three offset. Humeral bearing cup 36 mm +3 retentive thickness] PROCEDURE: [Closed reduction of left shoulder reverse arthroplasty dislocation with revision of humeral insert and cup] ESTIMATED BLOOD LOSS: [200 mL] INDICATIONS: [The patient is a 74-year-old morbidly obese male that has a history of a total shoulder arthroplasty that became dislocated a couple of months after the surgery. The patient was converted last month to a total shoulder reverse arthroplasty and presented to our clinic for the 1st follow-up and it was noted that he had also a dislocation anteriorly. The patient does not know when the dislocation occurred or what he did to cause it. The patient is brought to the operating room for a revision of the shoulder components including the humeral cup, humeral insert and or glenosphere. The patient understood the procedure, risks, benefits and possible complications and agreed signed the consent form] DESCRIPTION OF PROCEDURE: [After adequate general anesthesia the patient was transferred to the surgical bed intubated. He was then placed in the beach chair position. His head and right upper extremity was secured SCDs applied and then the left upper extremity was prepped and draped in the usual. An incision was carried down followed with a recent incision in the deltopectoral area going to the skin subcutaneous tissue following the previous sutures placed allowing us to go to the deltopectoral space. Retractors were applied and the dislocation was easily identified and after extending and externally rotating the arm the proximal humerus was presented in the wound and we proceeded to remove the humeral cup and insert. With the proceeded our dissection around the glenoid anteriorly and then posteriorly while retractors were applied with the use of the radial we cleaned around the glenoid other debris present as well as around the proximal humeral end of the bone. Irrigation was carried down and then with the use of the metallic for we were able to dislocate the glenosphere. It was noted that the base plate was well secured. There were no fractures in the glenoid or the humerus. After irrigation was carried down then proceeded to trial 1st a size 40 glenosphere with was inserted with difficulty but then trying to applied the constrained cup was practically impossible to reduce. These components were removed and then we switched to a 36+3 glenosphere and once again the reduction was not possible with the constrained cup. Finally we opted to applied the previously removed glenosphere which was a 36 mm standard after this and the wound were copiously irrigated with antibiotic solution then we proceeded to apply the 36 constrained cup in a standard humeral insert with 3 mm offset. Significant difficulty we were able to reduce this. X-rays taken with the C-arm revealed an acceptable position of the components. Range of motion was restricted but the shoulder felt stable. After copious irrigation with Betadine solution to proceeded to follow with antibiotic solution jet lavage irrigation and then we proceeded to close the wound with a approximation of the muscle layer with 1. Vicryl stitches followed by process subcutaneous tissue with two Monocryl and the skin with 3-0 Monocryl subcuticularly. The wound was covered with a soft dressing. The patient's drapes were then removed. He was placed in the supine position, awakened and extubated and taken to recovery room for follow-up by anesthesia. There were no complications during the procedure.] REVA OLIVER MD Sep 12, 2024 11:01
--- NOTE | 2024-09-12 11:10 | HMCIMG ---
INTRAOPERATIVE FLUOROSCOPIC GUIDANCE UP TO 1 HOUR. IMPRESSION: Intraoperative fluoroscopic guidance was provided for reverse left shoulder arthroplasty hardware revision, which was performed by Dr. Lei. Total fluoroscopy time was 5.8 seconds, and administered dose, 0.69 mGy. A total of 5 spot images obtained. Please refer to the orthopedic procedure note for further details.
[2024-09-12] MEDS ORDERED: DiphenhydrAMINE HCL 50 MG/ML VIAL IVP PRN (11:30)
[2024-09-12] MEDS: 0.9%NACL 1000ML 1,000 ML IV SCH (11:30)
[2024-09-12] MEDS ORDERED: TEMAZepam 15 MG CAPSULE PO PRN (11:30)
[2024-09-12] MEDS ORDERED: ketOROlac 15MG/ML VIAL (15MG/ML) IV PRN (11:30)
[2024-09-12] MEDS ORDERED: PoTASSium chloRIDE 20MEQ/100ML 100 ML IV PRN (11:30)
[2024-09-12] MEDS ORDERED: PoTASSium chl 10% ELIXIR 20MEQ 20 MEQ/15 ML UDCUP PO PRN (11:30)
[2024-09-12] MEDS ORDERED: PoTASSium chloRIDE 20MEQ ER 20 MEQ ERTAB PO PRN (11:30)
[2024-09-12] MEDS ORDERED: ondanSETRON 4MG INJ IVP PRN (11:30)
[2024-09-12] MEDS ORDERED: HYDROcodone/APAP 5/325 1 TAB TABLET PO PRN (11:30)
[2024-09-12] MEDS: INSULIN humuLIN R 100 UNIT/ML 3ML SQ SCH (11:30)
--- NOTE | 2024-09-12 15:00 | NUR ---
PATIENT OOB UP TO CHAIR SAE WELL PULSES TO LEFT ARM PALPABLE
[2024-09-12] MEDS: ceFAZolin SODIUM 2 GM VIAL IVPB SCH (17:16)
--- NOTE | 2024-09-12 18:13 | NUR ---
No orders for ROM. Orders for sling and immobilizer. Sling in place. No immobilizer present.
[2024-09-12] MEDS: doCUSate SODIUM 100 MG CAP PO SCH (20:32)
[2024-09-12] MEDS: HYDROcodone/APAP 5/325 1 TAB TABLET PO PRN (20:32)
[2024-09-12] MEDS: ENOXAPARIN SODIUM 40 MG/0.4 ML SYRINGE SQ ONE (20:33)
[2024-09-13 00:02] VITALS: BP 162/74; PULSE 59; RESP 20; TEMP 98.1
[2024-09-13 04:21] VITALS: BP 142/74; PULSE 59; RESP 19; TEMP 97.8
[2024-09-13 06:06] LABS: HEMATOCRIT 35.7 % (42-54); MEAN CORPUSCULAR HEMOGLOBIN 32.1 pg (27.0-33.0); MEAN CORPUSCULAR HGB CONC 33.1 g/dL (32.0-36.0); RED BLOOD CELL COUNT(AUTO) 3.68 MIL/uL (4.50-6.20); RED CELL DISTRIBUTION WIDTH 14.6 % (11.0-15.5); WHITE BLOOD COUNT (AUTO) 14.2 K/uL (4.8-10.8)
[2024-09-13 06:27] LABS: CREATININE 0.9 mg/dL (0.5-1.3); POTASSIUM 4.1 mmol/L (3.5-5.1)
[2024-09-13] MEDS: HYDROcodone/APAP 5/325 1 TAB TABLET PO PRN (06:50)
[2024-09-13 07:35] VITALS: BP 121/53; PULSE 56; RESP 20; TEMP 98.4
[2024-09-13 07:40] VITALS: O2SAT 96
[2024-09-13] MEDS: tamSULOsin HCL 0.4 MG CAP.ER.24H PO SCH (09:00)
[2024-09-13] MEDS: polyETHYLene GLYCol 3350 17 GM POWD.PACK PO SCH (09:00)
--- NOTE | 2024-09-13 09:12 | PN ---
Ortho postop day one. This morning the patient is awake alert and oriented. He is out of bed seated in his chair resting comfortably is at the bedside. The dressing is intact. Arm is in arm sling. Able to open and close his hand to make a full fist on command. Normal sensation to touch. Distal neurovascular exam intact. Vital signs have remained stable. Afebrile. Voiding on his own without difficulty. Passing gas. Laboratory results reviewed. Noted to have a drop in hemoglobin and hematocrit as expected after revision total shoulder arthroplasty. Patient is asymptomatic and we will address per protocol as necessary. Operative findings discussed with the patient. He is anticipating going home with a home health/APC/OT. Patient is anticipating going home today as case management is working on discharge disposition. Discharge orders have already been entered by Dr. Lei. We will follow up in clinic as scheduled. 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 Plan: Continue with Dr. Lei protocol and discharge. Asymptomatic acute postoperative blood loss anemia addressed with the protocol as necessary Vitals/Labs Vital Signs Date Time Temp Pulse Resp B/P (MAP) Pulse Ox O2 Delivery O2 Flow Rate FiO2 09/13/24 07:35 98.4 56 20 121/53 96 Room Air 21 09/12/24 20:00 0 Laboratory Tests 09/13/24 05:49 Medications Current Medications Cefazolin Sodium 1 gm STK-MED ONCE .ROUTE Last administered on 09/12/24at 08:00; Start 09/12/24 at 06:20; Stop 09/12/24 at 06:20; Status DC Cefazolin Sodium 2 gm STK-MED ONCE .ROUTE Last administered on 09/12/24at 08:00; Start 09/12/24 at 06:20; Stop 09/12/24 at 06:20; Status DC Sodium Chloride 1,000 ml @ As Directed STK-MED ONCE IV Last administered on 09/12/24at 07:20; Start 09/12/24 at 06:20; Stop 09/12/24 at 06:21; Status DC Lidocaine HCl 100 mg STK-MED ONCE .ROUTE; Start 09/12/24 at 07:14; Stop 09/12/24 at 07:20; Status DC Ondansetron HCl 4 mg STK-MED ONCE .ROUTE; Start 09/12/24 at 07:14; Stop 09/12/24 at 07:20; Status DC Succinylcholine Chloride 200 mg STK-MED ONCE .ROUTE; Start 09/12/24 at 07:15; Stop 09/12/24 at 07:20; Status DC Dexamethasone Sodium Phosphate 10 mg STK-MED ONCE .ROUTE; Start 09/12/24 at 07:15; Stop 09/12/24 at 07:20; Status DC Glycopyrrolate 1 mg STK-MED ONCE .ROUTE; Start 09/12/24 at 07:15; Stop 09/12/24 at 07:20; Status DC Propofol 200 mg STK-MED ONCE IV; Start 09/12/24 at 07:15; Stop 09/12/24 at 07:20; Status DC Neostigmine Methylsulfate 10 mg STK-MED ONCE IV; Start 09/12/24 at 07:15; Stop 09/12/24 at 07:20; Status DC Rocuronium [place] 50 mg STK-MED ONCE .ROUTE; Start 09/12/24 at 07:16; Stop 09/12/24 at 07:20; Status DC Fentanyl Citrate 100 mcg STK-MED ONCE .ROUTE; Start 09/12/24 at 07:16; Stop 09/12/24 at 07:20; Status DC Midazolam HCl 2 mg STK-MED ONCE .ROUTE; Start 09/12/24 at 07:16; Stop 09/12/24 at 07:20; Status DC Propofol 200 mg STK-MED ONCE IV; Start 09/12/24 at 07:36; Stop 09/12/24 at 07:36; Status DC Ondansetron HCl 4 mg STK-MED ONCE .ROUTE; Start 09/12/24 at 08:00; Stop 09/12/24 at 08:00; Status DC Ephedrine Sulfate 50 mg STK-MED ONCE .ROUTE; Start 09/12/24 at 08:04; Stop 09/12/24 at 08:04; Status DC Cefazolin Sodium 1 gm STK-MED ONCE .ROUTE Last administered on 09/12/24at 08:52; Start 09/12/24 at 08:07; Stop 09/12/24 at 08:07; Status DC Rocuronium [place] 50 mg STK-MED ONCE .ROUTE; Start 09/12/24 at 08:28; Stop 09/12/24 at 08:28; Status DC Ropivacaine 150 mg STK-MED ONCE .ROUTE; Start 09/12/24 at 08:35; Stop 09/12/24 at 08:36; Status DC Phenylephrine HCl 10 mg STK-MED ONCE IV; Start 09/12/24 at 09:35; Stop 09/12/24 at 09:35; Status DC Sodium Chloride 1,000 ml @ 100 mls/hr Q10H IV; Start 09/12/24 at 11:30; Stop 09/13/24 at 11:29 Polyethylene Glycol 17 gm DAILY PO; Start 09/13/24 at 09:00; Stop 10/13/24 at 08:59 Ketorolac Tromethamine 15 mg Q6H PRN IV; Start 09/12/24 at 11:30; Stop 09/17/24 at 11:29 Tamsulosin HCl 0.4 mg DAILY PO; Start 09/13/24 at 09:00; Stop 10/13/24 at 08:59 Temazepam 15 mg HS PRN PO; Start 09/12/24 at 11:30; Stop 10/12/24 at 11:29 Ondansetron HCl 4 mg Q6H PRN IVP; Start 09/12/24 at 11:30; Stop 10/12/24 at 11:29 Diphenhydramine HCl 25 mg Q6H PRN IVP; Start 09/12/24 at 11:30; Stop 10/12/24 at 11:29 Insulin Human Regular INSULIN SLIDING SCAL... ACHS SQ; Start 09/12/24 at 11:30; Stop 10/12/24 at 11:29 Cefazolin Sodium 2 gm Q8H IVPB Last administered on 09/13/24at 00:36; Start 09/12/24 at 16:30; Stop 09/13/24 at 00:31; Status DC Docusate Sodium 100 mg BID PO; Start 09/12/24 at 21:00; Stop 10/12/24 at 20:59 Potassium Chloride 100 ml @ 100 mls/hr AD PRN IV; Start 09/12/24 at 11:30; Stop 10/12/24 at 11:29 Potassium Chloride 20 meq AD PRN PO; Start 09/12/24 at 11:30; Stop 10/12/24 at 11:29 Potassium Chloride 20 meq AD PRN PO; Start 09/12/24 at 11:30; Stop 10/12/24 at 11:29 Acetaminophen/ Hydrocodone Bitart Q4H PRN PO; Start 09/12/24 at 11:30; Stop 09/12/24 at 11:36; Status DC Enoxaparin Sodium 40 mg ONCE ONCE SQ Last administered on 09/12/24at 20:33; Start 09/12/24 at 21:00; Stop 09/12/24 at 21:01; Status DC Acetaminophen/ Hydrocodone Bitart 1 tab Q4H PRN PO Last administered on 09/13/24at 06:50; Start 09/12/24 at 12:00; Stop 09/17/24 at 11:59 Acetaminophen/ Hydrocodone Bitart 2 tab Q4H PRN PO Last administered on 09/13/24at 02:15; Start 09/12/24 at 12:00; Stop 09/17/24 at 11:59 HECTOR SHARMA NP Sep 13, 2024 09:12
--- NOTE | 2024-09-13 10:09 | NUR ---
[facility] CM MET WITH PT AND IN ROOM THIS MORNING, INITIAL ASSESSMENT DONE. PATIENT IS INDEPENDENT PRIOR TO SURGERY, LIVES AT HOME WITH HIS . PATIENT HAS A SHOWER CHAIR, WHEELCHAIR, CPAP, GLUCOMETER, TAKES PO MED FOR DM, BPM. DENIES ANY OTHER EQUIPMENT/SERVICES. FEELS SAFE TO GO BACK HOME, STILL DRIVE, ABLE TO ASSIST WITH TRANSPORTATION AND NEEDS NECESSARY. DISCUSSED MD RECOMMENDATION FOR HOME W/HH, PT WOULD LIKE TO USE [facility] [employer] [facility], CONSENT SIGNED ARTI FOR [facility]/[place] ASSIGNED [facility]. PT WOULD LIKE TO DC TODAY, DOES NOT WANT TO WAIT FOR TO GET APPROVED IF MD AGREEABLE TO DC PT W/PENDING HH, INFORMED PT CM WILL FOLLOW UP WITH . [facility]. CM SENT ORDER, CLINICALS, PT TO [place] VIA SECURE FAX AND EMAIL, PENDING REP RESPONSE. PT PENDING APPROVAL FOR [facility] [email or web address]. CM TO CONTINUE TO FOLLOW UP. Addendum: 09/13/24 at 1012 by ABDI FRANK LVN Amended: Links added.
[2024-09-13 11:30] VITALS: BP 144/65; PULSE 65; RESP 20; TEMP 98
== END 2024-09-13 13:00 | disposition home health service (06) | DRG 483 ==
LOC: DAHIP 09-12 06:05 → 4AH 09-12 13:28
PROVIDERS: ADMIT Orthopaedic Surgery; ATTEND Orthopaedic Surgery
PROC: 0RRK0J6 Replacement of Left Shoulder Joint with Synthetic Substitute, Humeral Surface, Open Approach (ICD-10-PCS; 2024-09-12)
PROC: 3E0T3BZ Introduction of Anesthetic Agent into Peripheral Nerves and Plexi, Percutaneous Approach (ICD-10-PCS; 2024-09-12)
PROC: 0RPK0J6 Removal of Synthetic Substitute from Left Shoulder Joint, Humeral Surface, Open Approach (ICD-10-PCS; principal; 2024-09-12 07:30)
DX: S43.015S Anterior dislocation of left humerus, sequela (principal); D62 Acute posthemorrhagic anemia; Z96.612 Presence of left artificial shoulder joint; M25.312 Other instability, left shoulder; E66.01 Morbid (severe) obesity due to excess calories; I10 Essential (primary) hypertension; E78.5 Hyperlipidemia, unspecified; J44.9 Chronic obstructive pulmonary disease, unspecified; M10.9 Gout, unspecified; X58.XXXA Exposure to other specified factors, initial encounter; Z96.653 Presence of artificial knee joint, bilateral; Z83.438 Family history of other disorder of lipoprotein metabolism and other lipidemia; Z82.3 Family history of stroke; Z83.3 Family history of diabetes mellitus; Y93.89 Activity, other specified; Y92.89 Other specified places as the place of occurrence of the external cause; Y99.8 Other external cause status
CPT/HCPCS: 36415; 73030; 80048; 82948; 85025; 85027; A4565; G0378; J0330; J0690; J1100; J1650; J2003; J2250; J2371; J2405; J2704; J2710; J2795; J3010; J3490; J7030; A4213; A4215; A4216; A4221; A4222; A4223; A4649; A4663; A4930; A6206; C1776